=== PATIENT | male | born 1985 | race Hispanic/Latino ===

== ENCOUNTER 2022-12-24 10:58 | Emergency (ER) | payer SELFPAY ==
--- NOTE | ~2022-12-24 | XR_ITS ---
EXAMINATION: XR orbit foreign body INDICATION: Facial injury, possible foreign body TECHNIQUE: Two views of the orbits are obtained. COMPARISON: None available FINDINGS: No fracture, dislocation, or subluxation. The bones and joint spaces are normal. There mario ears to be a left periorbital soft tissue laceration. No radiopaque foreign body is identified. IMPRESSION: 1. No acute osseous abnormality or radiopaque foreign body identified. Reviewed, dictated and finalized at location F.
--- NOTE | 2022-12-24 11:06 | ED.WOUNDLAC ---
HPI - Wound/Laceration General Chief Complaint: Wound/Laceration Stated Complaint: injury above left eye Time Seen by Provider: 12/24/22 11:02 Source: patient Mode of arrival: ambulatory Limitations: no limitations History of Present Illness HPI narrative: Alirio is a 37-year-old male patient presenting to clinic today with complaints of a laceration above his left eye. He reports he was working in a garage this morning around 0945 when the spring broke and hit him above the left eye. He denies any loss of consciousness or any neck pain currently. Rates his pain currently 07/30. Denies any eye injury or pain. Related Data Allergies Allergy/AdvReac Type Severity Reaction Status Date / Time No Known Allergies Allergy Verified 12/24/22 11:38 Review of Systems Review of Systems: Pertinent positives per HPI. Patient denies any fever, chills, rash, headache, visual changes, dizziness, cough, runny nose, sore throat, shortness of breath, chest pain, palpitations, nausea, vomiting, diarrhea, constipation, abdominal pain, or any urinary issues. PMFSH Comments At the time of my signature, I reviewed and agree with the nursing past medical, surgical, social, and family history. There is no relevant family history pertinent to the patient complaint. Exam Narrative: General: Well-developed, well nourished, in no apparent distress Head: Normocephalic, atraumatic. Cardio: Regular rate and rhythm, s1 and s2 normal, no murmur appreciated. Resp: Clear to auscultation bilaterally, no rhonchi, rales, wheezing or rubs. Integumentary: [place], warm, and dry, intact without lesion, left eyebrow/forehead laceration 2 cm x1cm laceration in the shape of a T . No obvious eye injury, denies eye pain Course Course Emergency Course: Portions of this record may have been created with voice recognition software. Level of Care: Express Care Visit Vital Signs Vital signs: Vital Signs Temperature 36.7 C 12/24/22 11:23 Pulse Rate 78 12/24/22 11:23 Respiratory Rate 16 12/24/22 11:23 Blood Pressure 148/84 H 12/24/22 11:23 Pulse Oximetry 99 12/24/22 11:23 Oxygen Delivery Room Air 12/24/22 11:23 Temperature 36.7 C 12/24/22 11:23 Pulse Rate 78 12/24/22 11:23 Respiratory Rate 16 12/24/22 11:23 Blood Pressure 148/84 H 12/24/22 11:23 Pulse Oximetry 99 12/24/22 11:23 Oxygen Delivery Room Air 12/24/22 11:23 Vital signs reviewed Procedures Laceration Laceration 1: Date: 12/24/22 Site: face Side (If applicable): left Size (cm): 2.5 Description: flap Depth: simple, single layer Local Anesthetic: lidocaine 1% and with epi Amount of anesthesia used (mL): 1 Pre-repair: wound explored and irrigated extensively ====== Skin Level ====== Skin layer closed with: nylon Size (cm): 5-0 Number of sutures: 5 Technique: simple, interrupted ====== Subcutaneous Layer ====== ====== Muscle Layer ====== ====== Tendon Layer ====== Dressing: Verbal consent obtained for laceration repair. Risk and benefits explained and patient voiced understanding. Area was cleansed with antiseptic skin soap and a 25 gauge needle was then used to instill (1) ml of 1% lidocaine with epi into the wound edges. Area was prepped and draped using sterile technique. A 5-0 suture on a p needle was used to place (5) interrupted sutures bringing the wound edges together- well approximated. Patient tolerated procedure well. Triple antibiotic ointment applied MDM - Wound/Laceration MDM Narrative Medical decision making narrative: At the time of visit patient is resting comfortably on the exam table. Laceration repair procedure performed in the clinic today. Patient tolerated procedure well. Five sutures were placed. Will place the patient on Keflex for prophylactic. Tetanus was up-to-date. He denies any loss of consciousness
[2022-12-24 11:23] VITALS: BP 148/84; PULSE 78; RESP 16; TEMP 36.7; O2SAT 99
== END 2022-12-24 12:17 | disposition home or self-care (01) ==
PROVIDERS: Emergency Provider Nurse Practitioner Family
DX: S01.81XA Laceration without foreign body of other part of head, initial encounter (principal); W45.8XXA Other foreign body or object entering through skin, initial encounter; Y92.008 Other place in unspecified non-institutional (private) residence as the place of occurrence of the external cause
CPT/HCPCS: 12011; 70030; 99203; G0463